=== PATIENT | male | born 1950 ===

== ENCOUNTER 2022-03-07 11:30 | Emergency (ER) | payer MEDICARE ==
[2022-03-07] MEDS: Lidocaine 1% 5 ML VIAL INJECT ONE (11:40)
[2022-03-07] MEDS: Diphtheria,Pertussis(Acell),Tetanus Vaccine 0.5 ML SDV IM ONE (11:55)
[2022-03-07] MEDS: Lidocaine 1% 10 ML MDV INJECT ONE (13:17)
== END 2022-03-07 12:03 | disposition home or self-care (01) ==
LOC: LB.ED 11:30
DX: S61.210A Laceration without foreign body of right index finger without damage to nail, initial encounter (principal); I10 Essential (primary) hypertension; Z23 Encounter for immunization
CPT/HCPCS: 12002; 90471; 90715; 99282-25